=== PATIENT | female | born 1985 | race Caucasian/White ===

== ENCOUNTER 2016-07-26 13:11 | Inpatient (IN) | payer BC ==
[~2016-07-26] VITALS: Ht 154.9 cm; Wt 63.6 kg
[2016-07-26] VITALS (34 sets, daily range): BP systolic 95–145; BP diastolic 49–84; PULSE 52–111; TEMP 98.1–98.4
[~2016-07-26 13:11] MED LIST: PHENERGAN12.5 MG/SU RC; UNISOM25 MG PO
[2016-07-26] MEDS ORDERED: TUMS500 MG (13:27)
[2016-07-26 14:35] LABS: BASO % 0.4 % (0.0-2.0); EOS # 0.1 (0.0-0.7); EOS % 0.9 % (0-4.0); GRAN # 6.5 (1.4-6.5); GRAN % 67.1 % (42.2-75.2); HEMATOCRIT 37.2 % (37.0-47.0); HEMOGLOBIN 12.8 g/dl (12.5-16.0); LYMPH # 2.4 (1.2-3.4); MEAN CELL VOLUME 88 fl (80.0-100.0); MEAN CORPUSCULAR HEMOGLOBIN 30 pg (27.0-31.0); MEAN CORPUSCULAR HGB CONC 34 g/dl (33.0-37.0); MEAN PLATELET VOLUME 12.2 fl (7.4-10.4); MONO # 0.6 (0.1-0.6); PLATELET COUNT 173 K/mm3 (130-400); RED BLOOD COUNT 4.21 M/mm3 (4.10-5.30); REDCELL DISTRIBUTION WIDTH-CV 14.4 % (11.5-14.5); WHITE BLOOD COUNT 9.6 K/mm3 (4.8-10.8)
[2016-07-27 02:00] VITALS: BP 110/64; PULSE 68; TEMP 98.5
[2016-07-27 05:26] VITALS: BP 120/68; PULSE 65; TEMP 98.1
[2016-07-27 07:25] VITALS: BP 113/68; PULSE 74; TEMP 98.6
[2016-07-27] MEDS ORDERED: IBU800 M1 PO (09:01)
[2016-07-27] MEDS ORDERED: PERCOCET 325 MG1 TA2 PO (09:01)
[2016-07-27 12:06] VITALS: BP 108/68; PULSE 75
[2016-07-27 16:21] VITALS: BP 105/72; PULSE 79; TEMP 97.6
[2016-07-27 20:45] VITALS: BP 100/58; PULSE 83; TEMP 98.8
[2016-07-28 07:50] VITALS: BP 115/67; PULSE 69; TEMP 97.9
== END 2016-07-28 16:20 | disposition home or self-care (01) | DRG 775 ==
LOC: LDRO 13:11 → OB 13:39 → LDR 13:39 → OB 07-27 01:00
PROVIDERS: Student in an Organized Health Care Education/Training Program
PROC: 10E0XZZ Delivery of Products of Conception, External Approach (ICD-10-PCS; principal; 2016-07-26)
PROC: 0KQM0ZZ Repair Perineum Muscle, Open Approach (ICD-10-PCS; 2016-07-26)
DX: O42.12 Full-term premature rupture of membranes, onset of labor more than 24 hours following rupture (principal); O70.1 Second degree perineal laceration during delivery; O48.0 Post-term pregnancy; Z3A.40 40 weeks gestation of pregnancy; Z37.0 Single live birth
CPT/HCPCS: J2210; J2405; J2590; J7120

== ENCOUNTER 2016-10-06 19:53 | Observation (INO) | payer BC ==
[~2016-10-06] VITALS: Ht 154.9 cm; Wt 50.2 kg
[~2016-10-06 19:53] MED LIST changes: +IBU800 M1 PO; +PERCOCET 325 MG1 TA2 PO; +TUMS500 MG
[2016-10-06] MEDS ORDERED: COLACE 100100 MG/CAP PO (19:58)
[2016-10-06] MEDS ORDERED: PRENATAL1 TA7 PO (19:58)
[2016-10-06 20:55] LABS: BASO # 0.1 (0.0-0.2); BASO % 0.4 % (0.0-2.0); EOS # 0.2 (0.0-0.7); EOS % 1.1 % (0-4.0); GRAN # 11.7 (1.4-6.5); GRAN % 79.2 % (42.2-75.2); HEMATOCRIT 39.7 % (37.0-47.0); HEMOGLOBIN 13.4 g/dl (12.5-16.0); LYMPH # 1.8 (1.2-3.4); LYMPH % 12.5 % (20.0-51.0); MEAN CELL VOLUME 87 fl (80.0-100.0); MEAN CORPUSCULAR HEMOGLOBIN 29 pg (27.0-31.0); MEAN CORPUSCULAR HGB CONC 34 g/dl (33.0-37.0); MEAN PLATELET VOLUME 9.9 fl (7.4-10.4); MONO % 6.4 % (1.7-9.3); PLATELET COUNT 261 K/mm3 (130-400); RED BLOOD COUNT 4.56 M/mm3 (4.10-5.30); REDCELL DISTRIBUTION WIDTH-CV 12.3 % (11.5-14.5); WHITE BLOOD COUNT 14.8 K/mm3 (4.8-10.8)
[2016-10-06 21:05] LABS: ADJUSTED CALCIUM 8.8 mg/dL (8.4-10.2); ALBUMIN 4.6 gm/dL (3.5-5.0); BILIRUBIN,TOTAL 1.2 mg/dL (0.0-1.0); CALCIUM 9.3 mg/dL (8.4-10.2); CREATININE, serum 0.64 mg/dL (0.52-1.25); POTASSIUM 3.4 mmol/L (3.4-5.0); TOTAL PROTEIN 7.9 gm/dL (6.4-8.2)
[2016-10-06 21:19] LABS: PH 6 (5-8); SQUAMOUS EPITHELIAL 0-2 /hpf; URINE APPEARANCE Clear; URINE BACTERIA None Seen /hpf; URINE BILIRUBIN Negative (NEGATIVE); URINE BLOOD Negative (NEGATIVE); URINE COLOR Yellow; URINE GLUCOSE Negative (NEGATIVE); URINE KETONE Negative (NEGATIVE); URINE RBC 0-2 /hpf; URINE UROBILINOGEN Negative (NEGATIVE); URINE WBC 0-2 /hpf
[2016-10-06 23:36] VITALS: BP 102/63; PULSE 56; TEMP 98.2
[2016-10-07 01:46] VITALS: BP 104/56; PULSE 57; TEMP 98.2
[2016-10-07 06:19] VITALS: BP 102/53; PULSE 63; TEMP 97.4
[2016-10-07 09:50] VITALS: BP 121/71; PULSE 52
[2016-10-07 12:13] VITALS: TEMP 98.3
[2016-10-07] MEDS ORDERED: PERCOCET 325 MG1 TA2 PO (12:26)
[2016-10-07] MEDS ORDERED: MOTRIN 600600 MG/TAB PO (12:27)
[2016-10-07 12:43] VITALS: BP 105/65; PULSE 69
== END 2016-10-07 19:59 | disposition home or self-care (01) ==
LOC: COL.ER 19:53 → SURG 21:36
PROVIDERS: Emergency Medicine
DX: K80.12 Calculus of gallbladder with acute and chronic cholecystitis without obstruction (principal); F41.9 Anxiety disorder, unspecified
CPT/HCPCS: G0378; J0698; J1100; J1170; J2405; J2704; J3010; J7030; Q9967

== ENCOUNTER 2018-09-25 06:43 | Inpatient (IN) | payer BC ==
[~2018-09-25] VITALS: Ht 152.4 cm; Wt 65.9 kg
[~2018-09-25 06:43] MED LIST changes: +COLACE 100100 MG/CAP PO; +MOTRIN 600600 MG/TAB PO; +PRENATAL1 TA7 PO
[2018-10-08] VITALS (49 sets, daily range): BP systolic 64–131; BP diastolic 47–71; PULSE 58–685; TEMP 97.7–98.7
--- NOTE | 2018-10-08 07:05 | NUR ---
Pt arrives on unit ambulatory with spouse for induction of labor. G2L1 at 38.6 weeks gestation. Changed into a clean gown. EFM and toco applied. VSS. Denies vaginal bleeding, LOF and regular ctx. Reports GFM. IV started in LW. Labs drawn. LR and Hubert infusing. Admission assessment completed. Consents signed. Pt updated on POC. Safety reviewed. No questions or concerns at this time. Bed locked in low position. Call light within reach.
[2018-10-08 08:09] LABS: BASO # 0.1 (0.0-0.2); BASO % 0.6 % (0.0-2.0); EOS # 0.1 (0.0-0.7); GRAN # 7.8 (1.4-6.5); GRAN % 74.6 % (42.2-75.2); HEMATOCRIT 39.2 % (37.0-47.0); HEMOGLOBIN 12.7 g/dl (12.5-16.0); LYMPH % 19.4 % (20.0-51.0); MEAN CELL VOLUME 90 fl (80.0-100.0); MEAN CORPUSCULAR HEMOGLOBIN 29 pg (27.0-31.0); MEAN CORPUSCULAR HGB CONC 32 g/dl (33.0-37.0); MEAN PLATELET VOLUME 11.1 fl (7.4-10.4); MONO # 0.4 (0.1-0.6); MONO % 3.7 % (1.7-9.3); PLATELET COUNT 248 K/mm3 (130-400); RED BLOOD COUNT 4.35 M/mm3 (4.10-5.30); REDCELL DISTRIBUTION WIDTH-CV 14.1 % (11.5-14.5)
--- NOTE | 2018-10-08 10:02 | NUR ---
Pt sitting upright for epidural placement. Difficulty tracing FHR due to maternal position. RN at bedside adjusting monitors. FHR audible.
--- NOTE | 2018-10-08 15:50 | NUR ---
Forebag noted on SVE. Dr. Pulido at bedside. AROM of clear fluid. -/-2. Pericare performed.
--- NOTE | 2018-10-08 17:10 | NUR ---
Dr. Pulido at bedside for delivery. Pt prepped for delivery. Begins pushing with patient. Moves vertex well. 1717- of viable male infant attended by Dr. Pulido. Cord clamped x2 and cut from umbilicus. Infant dried and placed on mother's abdomen. Care of infant to Aldair Otto RN. Apgars 8/9/9. 1721- of placenta. Fundus firm at umbilicus. Bleeding WNL. Pitocin infusing per protocol. Perineum intact. Pericare performed and ice pack applied. Pt updated on POC. Safety reviewed. Bed locked in low position. Call light within reach. No questions or concerns at this time.
[2018-10-09 00:45] VITALS: BP 100/63; PULSE 78; TEMP 98.2
[2018-10-09 04:30] VITALS: BP 97/53; PULSE 59; TEMP 98.1
[2018-10-09 08:30] VITALS: BP 98/50; PULSE 68; TEMP 98.2
--- NOTE | 2018-10-09 10:37 | NUR ---
Initial visit; Mom thanked [employer] Hand for offering congratulations and God's blessings for the of her son. [facility] Tr[employer] Hand thanked mom for choosing [facility].
[2018-10-09 16:20] VITALS: BP 102/68; PULSE 65; TEMP 98.5
[2018-10-09 22:00] VITALS: BP 103/48; PULSE 85; TEMP 98.4
[2018-10-10 06:55] VITALS: BP 109/56; PULSE 70; TEMP 98.1
[2018-10-10] MEDS ORDERED: IBU800 M1 PO (09:09)
[2018-10-10 15:00] VITALS: BP 101/65; PULSE 69; TEMP 98.4
== END 2018-10-10 16:00 | disposition home or self-care (01) | DRG 807 ==
LOC: LDR 06:43 → OB 10-08 21:52
PROVIDERS: ADMIT Student in an Organized Health Care Education/Training Program
PROC: 10E0XZZ Delivery of Products of Conception, External Approach (ICD-10-PCS; principal; 2018-10-08)
PROC: 3E033VJ Introduction of Other Hormone into Peripheral Vein, Percutaneous Approach (ICD-10-PCS; 2018-10-08)
DX: O36.5930 Maternal care for other known or suspected poor fetal growth, third trimester, not applicable or unspecified (principal); Z37.0 Single live birth; O99.820 Streptococcus B carrier state complicating pregnancy; O42.92 Full-term premature rupture of membranes, unspecified as to length of time between rupture and onset of labor; O99.343 Other mental disorders complicating pregnancy, third trimester; F41.9 Anxiety disorder, unspecified; F32.9 Major depressive disorder, single episode, unspecified; Z3A.38 38 weeks gestation of pregnancy
CPT/HCPCS: J2405; J2540; J2590; J7120

== ENCOUNTER 2023-04-28 07:31 | Day surgery (SDC) | payer BC ==
[~2023-04-28] VITALS: Ht 154.9 cm; Wt 50.6 kg
[~2023-04-28 07:31] MED LIST changes: +LR 1,000 ML IV SCH; +Ondansetron 4 MG/2 ML VIAL IV PRN
[2023-04-28 08:00] VITALS: BP 103/86; PULSE 77; TEMP 97.6
[2023-04-28] MEDS ORDERED: ZYRTEC 10MG10 MG PO (08:11)
[2023-04-28] MEDS ORDERED: MULTIVITAMIN FO1 CAP PO (08:11)
[2023-04-28 09:25] VITALS: BP 102/53; PULSE 84; TEMP 97.6
--- NOTE | 2023-04-28 09:25 | NUR ---
PATIENT RETURNS TO ROOM 7 VIA CART. ASSIST X 2 TO CHAIR. SHE IS VERY SLEEPY. DECLINES ANYTHING TO EAT OR DRINK. VITAL SIGNS WNL. CALL LIGHT IS WITHIN REACH. WAITING FOR PHYSICIAN TO SPEAK WITH PATIENT. WILL CONTINUE TO MONITOR.
[2023-04-28 09:40] VITALS: BP 103/63; PULSE 67
--- NOTE | 2023-04-28 09:40 | NUR ---
PATIENT IS DOING WELL. SHE IS STILL SLEEPY BUT ABLE TO ANSWER QUESTIONS. VITAL SIGNS WNL. I CALLED HER , HE IS SENDING HER MOTHER IN [place] TO PICK HER UP. IV DISCONTINUED. WILL CONTINUE TO MONITOR.
[2023-04-28 09:55] VITALS: BP 102/66; PULSE 58
--- NOTE | 2023-04-28 09:55 | NUR ---
VITAL SIGNS WNL. WAITING FOR PHYSICIAN TO SPEAK WITH PATIENT. PATIENT IS A LITTLE NAUSEATED SO DECLINES ANYTHING TO EAT OR DRINK. AGREED TO TRY SOME ICE CHIPS. WILL DISCHARGE ONCE PATIENT IS READY.
== END 2023-04-28 10:25 | disposition home or self-care (01) ==
LOC: SDCO 07:31
DX: K31.7 Polyp of stomach and duodenum (principal); K31.89 Other diseases of stomach and duodenum; K21.9 Gastro-esophageal reflux disease without esophagitis; E80.7 Disorder of bilirubin metabolism, unspecified; R19.7 Diarrhea, unspecified; R19.4 Change in bowel habit; K64.0 First degree hemorrhoids; R11.0 Nausea; Z90.49 Acquired absence of other specified parts of digestive tract
CPT/HCPCS: J2704; J7120